=== PATIENT | female | born 1960 | race Caucasian/White ===

== ENCOUNTER → 2021-11-09 | Emergency (ER) | payer OTHER ==
[~2021-11-09] VITALS: Ht 154.9 cm; Wt 72.6 kg
[~2021-11-09] MED LIST: KETO10TA2 PO; LAMICTAL25 MG; LEVAQUIN750 MG PO; MEDROLPACK PO; PREMPRO 0.625/21 TAB; PROVENTIL3 ML/2.5 M IH; TUSSIONEX PENNKI5 ML PO; ZOCOR20 MG
== END | disposition left against medical advice (07) ==
LOC: ER 12:04
DX: R10.13 Epigastric pain (principal); K57.32 Diverticulitis of large intestine without perforation or abscess without bleeding; Z20.822 Contact with and (suspected) exposure to COVID-19